=== PATIENT | female | born 1990 | race Two or more races ===

== ENCOUNTER → 2024-06-25 10:06 | Outpatient (REF) | payer OTHER, SELFPAY ==
[2024-06-26 16:01] LABS: Mumps Virus IgG Positive; Rubeola (Measles) IgG Positive; Varicella Zoster IgG (VZV) Positive
[2024-06-26 20:13] LABS: Rubella Positive
[2024-06-27 14:04] LABS: Quantiferon Mitogen minus NIL 9.92 IU/mL; Quantiferon NIL 0.08 IU/mL; Quantiferon Plus TB1 minus NIL 0.12 IU/mL (<=0.34); Quantiferon Plus TB2 minus NIL 0.12 IU/mL (<=0.34); Quantiferon TB Gold Plus Negative (Negative)
== END ==
LOC: OHS 10:06
PROVIDERS: ATTENDING PHYSICIAN Nurse Practitioner Family
DX: Z23 Encounter for immunization (principal)
CPT/HCPCS: 36415; 86480; 86735; 86762; 86765; 86787